=== PATIENT | male | born 1970 ===

== ENCOUNTER 2021-02-26 09:28 | Emergency (ER) | payer SELFPAY ==
[2021-02-26] MEDS ORDERED: LACTULOSE 20 GM/30 ML ORAL LIQD PO ONE (10:21)
[2021-02-26] MEDS ORDERED: MAGNESIUM CITRATE 300 ML ORAL LIQD PO ONE (10:21)
--- NOTE | 2021-02-26 10:27 | Emergency Department Report ---
ED General Adult HPI - General Chief complaint: Abdominal Pain Stated complaint: pain in bottom,cant use bathroom Time Seen by Provider: 02/26/21 10:07 Source: patient Mode of arrival: Ambulatory Limitations: No Limitations - History of Present Illness Initial comments: Patient is a 50-year-old male presents emergency room complaints of constipation. He states he has been feeling constipated for approximately a week. He states that a week ago he was straining to have a bowel movement and now has discomfort in the rectum. He states he has been unable to have a bowel movement for 3 days. He is still able to pass gas. He denies any vomiting, hematochezia, melena. No past medical history. No allergies medications. He has not tried any medications for his symptoms - Related Data Previous Rx's Medication Instructions Recorded Last Taken Type Docusate Sodium [Colace] 100 mg PO BID PRN #60 capsule 02/26/21 Unknown Rx Hydrocortisone [Anucort-HC SUPPOS] 25 mg RC BID #12 supp.rect 02/26/21 Unknown Rx Polyethylene Glycol 3350 [Miralax] 17 gm PO DAILY #1 bottle 02/26/21 Unknown Rx Allergies Allergy/AdvReac Type Severity Reaction Status Date / Time No Known Allergies Allergy Unverified 02/26/21 09:34 ED Review of Systems ROS: Stated complaint: pain in bottom,cant use bathroom Other details as noted in HPI Comment: All other systems reviewed and negative ED Past Medical Hx - Past Medical History Previous Medical History?: No - Surgical History Past Surgical History?: No - Medications Home Medications: Home Medications Medication Instructions Recorded Confirmed Last Taken Type Docusate Sodium [Colace] 100 mg PO BID PRN #60 capsule 02/26/21 Unknown Rx Hydrocortisone [Anucort-HC SUPPOS] 25 mg RC BID #12 supp.rect 02/26/21 Unknown Rx Polyethylene Glycol 3350 [Miralax] 17 gm PO DAILY #1 bottle 02/26/21 Unknown Rx ED Physical Exam - General Limitations: No Limitations General appearance: alert, in no apparent distress - Head Head exam: Present: atraumatic, normocephalic - Eye Eye exam: Present: normal appearance - ENT ENT exam: Present: mucous membranes moist - Respiratory Respiratory exam: Present: normal lung sounds bilaterally. Absent: respiratory distress, wheezes, rales, rhonchi, stridor, chest wall tenderness, accessory muscle use, decreased breath sounds, prolonged expiratory - Cardiovascular Cardiovascular Exam: Present: regular rate, normal rhythm, normal heart sounds. Absent: systolic murmur, diastolic murmur, rubs, gallop - GI/Abdominal GI/Abdominal exam: Present: soft, normal bowel sounds. 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, there is one small internal hemorrhoid, no external hemorrhoid, no induration, no fluctuance, no increased warmth, no drainage, no ttp, small brown stool, no gross blood, no impaction) - Neurological Exam Neurological exam: Present: alert, oriented X3 - Psychiatric Psychiatric exam: Present: normal affect, normal mood - Skin Skin exam: Present: warm, dry, intact ED Course Vital Signs 02/26/21 02/26/21 09:36 12:12 Temperature 98.2 F 97.5 F L Pulse Rate 84 101 H Respiratory 17 18 Rate Blood Pressure 118/82 Blood Pressure 122/75 [Left] O2 Sat by Pulse 98 Oximetry ED Medical Decision Making - Radiology Data Radiology results: report reviewed Ordering Physician: MADONNA ENCINAS Date of Service: 02/26/21 Procedure(s): XR abdomen 2V Accession Number(s): [id number] cc: MADONNA ENCINAS Fluoro Time In Minutes: ABDOMEN 2 VIEWS INDICATION / CLINICAL INFORMATION: constipation. COMPARISON: None available. FINDINGS: TUBES / LINES: None. BOWEL GAS PATTERN: No significant abnormality. There is a small amount of stool noted throughout the colon. FREE AIR / EXTRALUMINAL GAS: None seen. ADDITIONAL FINDINGS: No significant additional findings. CHEST: Visualized chest shows no significant abnormality. IMPRESSION: 1. No significant abnormality. Signer Name: Danny Jarvis MD Signed: 02/26/2021 10:58 AM Workstation Name: [id number] Transcribed By: SS Dictated By: Danny Jarvis MD Electronically Authenticated By: Danny Jarvis MD Signed Date/Time: 02/26/211057 DD/ 57 TD/TT: - Medical Decision Making Patient is a 50-year-old male presents emergency room complaints of constipation. He states he has been feeling constipated for approximately a week. He states that a week ago he was straining to have a bowel movement and now has discomfort in the rectum. He states he has been unable to have a bowel movement for 3 days. He is still able to pass gas. He denies any vomiting, hematochezia, melena. No past medical history. No allergies medications. He has not tried any medications for his symptoms. Vitals are normal. 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 X-ray abdomen No significant abnormality. There is a small amount of stool noted throughout the colon. Patient has no obstructive symptoms. Patient given prescription for medications. Discussed strict return precautions in detail with patient. Discussed the importance of outpatient follow-up. Advised patient Please take medication as prescribed. Increase your water intake. Increase your fiber intake. Follow-up with your primary care doctor. Follow-up with a GI doctor. Return to emergency room immediately for any new or worsening symptoms. Critical care attestation.: If time is entered above; I have spent that time in minutes in the direct care of this critically ill patient, excluding procedure time. ED Disposition Clinical Impression: Rectal pain, Internal hemorrhoid Constipation Qualifiers: Constipation type: unspecified constipation type Qualified Code(s): K59.00 - Constipation, unspecified Disposition: HOME / SELF CARE / HOMELESS Is pt being admited?: No Does the pt Need Aspirin: No Condition: Stable Instructions: Hemorrhoids, [id number], Constipation, Adult Additional Instructions: Please take medication as prescribed. Increase your water intake. Increase your fiber intake. Follow-up with your primary care doctor. Follow-up with a GI doctor. Return to emergency room immediately for any new or worsening symptoms. Prescriptions: Hydrocortisone [Anucort-HC SUPPOS] 25 mg RC BID #12 supp.rect Docusate Sodium [Colace] 100 mg PO BID PRN #60 capsule PRN Reason: constipation Polyethylene Glycol 3350 [Miralax] 17 gm PO DAILY #1 bottle Referrals: PRIMARY CARE, [Primary Care Provider] - 2-3 Days [facility] [Provider Group] - 2-3 Days Time of Disposition: :48 Print Language: GREEK
--- NOTE | 2021-02-26 11:03 | XRay Report ---
ABDOMEN 2 VIEWS INDICATION / CLINICAL INFORMATION: constipation. COMPARISON: None available. FINDINGS: TUBES / LINES: None. BOWEL GAS PATTERN: No significant abnormality. There is a small amount of stool noted throughout the colon. FREE AIR / EXTRALUMINAL GAS: None seen. ADDITIONAL FINDINGS: No significant additional findings. CHEST: Visualized chest shows no significant abnormality. IMPRESSION: 1. No significant abnormality. Signer Name: Danny Jarvis MD Signed: 02/26/2021 10:58 AM Workstation Name: [id number]
[2021-02-26 12:14] VITALS: BP 122/75
== END 2021-02-26 12:15 | disposition home or self-care (01) ==
LOC: ED 09:28
DX: K64.8 Other hemorrhoids (principal); K59.00 Constipation, unspecified; Z79.899 Other long term (current) drug therapy
CPT/HCPCS: 74019; 99283

== ENCOUNTER 2021-03-08 08:56 | Inpatient (IN) | payer SELFPAY ==
[2021-03-08] MEDS ORDERED: SODIUM CHLORIDE 0.9% 1000 ML IV SOLN IV ONE (10:34)
[2021-03-08] MEDS ORDERED: PIPERACIL/TAZOBACTA 4.5/NS 100 4.5 GM/100 ML VIAL IV ONE (10:35)
--- NOTE | 2021-03-08 10:39 | Emergency Department Report ---
ED General Adult HPI - General Chief complaint: Rectal Pain Stated complaint: HEMORRIOD Time Seen by Provider: 03/08/21 10:15 Source: patient Mode of arrival: Ambulatory Limitations: No Limitations - History of Present Illness Initial comments: Patient is a 50-year-old male presents emergency room with complaints of bleeding and drainage from the gluteal region that began 4 to 5 days ago. Patient was evaluated emergency department on 02/26/2021 and diagnosed with a small external hemorrhoid at that time. Patient was not having any rectal bleeding or hematochezia at that time. He states over the last few days he began having edema present to the gluteal region and then started having this drainage. He did not follow-up with a primary care doctor or a GI doctor. he denies any fever, abd pain, melena. no PMHx. no allergies to meds. - Related Data Previous Rx's Medication Instructions Recorded Last Taken Type Docusate Sodium [Colace] 100 mg PO BID PRN #60 capsule 02/26/21 Unknown Rx Hydrocortisone [Anucort-HC SUPPOS] 25 mg RC BID #12 supp.rect 02/26/21 Unknown Rx Polyethylene Glycol 3350 [Miralax] 17 gm PO DAILY #1 bottle 02/26/21 Unknown Rx Allergies Allergy/AdvReac Type Severity Reaction Status Date / Time No Known Allergies Allergy Verified 03/08/21 10:29 ED Review of Systems ROS: Stated complaint: HEMORRIOD Other details as noted in HPI Comment: All other systems reviewed and negative ED Past Medical Hx - Past Medical History Previous Medical History?: No - Surgical History Past Surgical History?: No - Medications Home Medications: Home Medications Medication Instructions Recorded Confirmed Last Taken Type Docusate Sodium [Colace] 100 mg PO BID PRN #60 capsule 02/26/21 Unknown Rx Hydrocortisone [Anucort-HC SUPPOS] 25 mg RC BID #12 supp.rect 02/26/21 Unknown Rx Polyethylene Glycol 3350 [Miralax] 17 gm PO DAILY #1 bottle 02/26/21 Unknown Rx ED Physical Exam - General Limitations: No Limitations General appearance: alert, in no apparent distress - Head Head exam: Present: atraumatic, normocephalic - Eye Eye exam: Present: normal appearance - ENT ENT exam: Present: mucous membranes moist - exam: Present: other (there is induration present to the bilateral gluteus, there is copious amounts of mostly bloody drainage, 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 ) - Neurological Exam Neurological exam: Present: alert, oriented X3 - Psychiatric Psychiatric exam: Present: normal affect, normal mood - Skin Skin exam: Present: warm, dry ED Course Vital Signs 03/08/21 03/08/21 03/08/21 10:26 11:28 11:30 Temperature 98.4 F Pulse Rate 104 H 93 H 89 Respiratory 16 27 H 23 Rate Blood Pressure 111/64 Blood Pressure 75/58 111/64 [Left] O2 Sat by Pulse 98 100 93 Oximetry 03/08/21 03/08/21 03/08/21 11:46 12:00 12:16 Temperature Pulse Rate 87 87 88 Respiratory 13 11 L 12 Rate Blood Pressure 95/69 105/56 103/67 Blood Pressure [Left] O2 Sat by Pulse 98 97 99 Oximetry 03/08/21 03/08/21 13:09 13:16 Temperature Pulse Rate 87 85 Respiratory 30 H 28 H Rate Blood Pressure Blood Pressure [Left] O2 Sat by Pulse 94 98 Oximetry - Reevaluation(s) Reevaluation #1: 03/08/21 10:30 advised charge nurse and nursing staff pt needs room NEO due to severe sepsis 03/08/21 10:50 Dr. sawyer ER attending evaluated pt and advised to call surgery, advised janelle daley to page surgery, he advised to change zosyn to cefepime, canceled zosyn and ordered cefepime 03/08/21 11:09 medical assistant secretary spoke to food and nutrition supervisor line for Dr. Navarro, who advised that she is currently in surgery 03/08/21 11:32 nurse advised lactic acid is 2.8, pt is currently getting sepsis fluid protoco ls, BP is improving 03/08/21 11:[address] Navarro, general surgeon regarding pt history, results, and severe sepsis, advised to keep patient n.p.o., order CT abdomen pelvis with IV contrast and she will see patient in the emergency room, advised hospitalist admission 03/08/21 11:53 called hospitalist, he will call back 03/08/21 12:[address], hospitalist who will accept and resume care of patient, will admit to hospitalist service ED Medical Decision Making - Lab Data Result diagrams: 03/08/21 10:53 03/08/21 10:53 Lab Results 03/08/21 03/08/21 03/08/21 Range/Units 10:53 10:53 10:53 WBC 10.6 (4.5-11.0) K/mm3 RBC 5.58 H (3.65-5.03) M/mm3 Hgb 17.8 H (11.8-15.2) gm/dl Hct 53.0 H (35.5-45.6) % MCV 95 H (84-94) fl MCH 32 (28-32) pg MCHC 34 (32-34) % RDW 13.3 (13.2-15.2) % Plt Count 491 H (140-440) K/mm3 Lymph % (Auto) 20.9 (13.4-35.0) % Mcdowell % (Auto) 16.0 H (0.0-7.3) % Eos % (Auto) 0.3 (0.0-4.3) % Baso % (Auto) 0.5 (0.0-1.8) % Lymph # (Auto) 2.2 (1.2-5.4) K/mm3 Mcdowell # (Auto) 1.7 H (0.0-0.8) K/mm3 Eos # (Auto) 0.0 (0.0-0.4) K/mm3 Baso # (Auto) 0.1 (0.0-0.1) K/mm3 Seg Neutrophils % 62.3 (40.0-70.0) % Seg Neutrophils # 6.6 (1.8-7.7) K/mm3 PT (12.2-14.9) Sec. INR (0.87-1.13) APTT (24.2-36.6) Sec. Sodium 132 L (137-145) mmol/L Potassium 3.3 L (3.6-5.0) mmol/L Chloride 87.4 L (98-107) mmol/L Carbon Dioxide 30 (22-30) mmol/L Anion Gap 18 mmol/L BUN 17 (9-20) mg/dL Creatinine 0.9 (0.8-1.3) mg/dL Estimated GFR > 60 ml/min BUN/Creatinine Ratio 19 % Glucose 117 H (75-100) mg/dL Lactic Acid 2.80 H* (0.7-2.0) mmol/L Calcium 9.4 (8.4-10.2) mg/dL Total Bilirubin 0.80 (0.1-1.2) mg/dL AST 35 (5-40) units/L ALT 23 (7-56) units/L Alkaline Phosphatase 117 (35-129) units/L C-Reactive Protein (0.00-1.30) mg/dL Total Protein 9.1 H (6.3-8.2) g/dL Albumin 2.9 L (3.9-5) g/dL Albumin/Globulin Ratio 0.5 % Blood Type Antibody Screen 03/08/21 03/08/21 03/08/21 Range/Units 10:53 10:57 11:52 WBC (4.5-11.0) K/mm3 RBC (3.65-5.03) M/mm3 Hgb (11.8-15.2) gm/dl Hct (35.5-45.6) % MCV (84-94) fl MCH (28-32) pg MCHC (32-34) % RDW (13.2-15.2) % Plt Count (140-440) K/mm3 Lymph % (Auto) (13.4-35.0) % Mcdowell % (Auto) (0.0-7.3) % Eos % (Auto) (0.0-4.3) % Baso % (Auto) (0.0-1.8) % Lymph # (Auto) (1.2-5.4) K/mm3 Mcdowell # (Auto) (0.0-0.8) K/mm3 Eos # (Auto) (0.0-0.4) K/mm3 Baso # (Auto) (0.0-0.1) K/mm3 Seg Neutrophils % (40.0-70.0) % Seg Neutrophils # (1.8-7.7) K/mm3 PT 14.0 (12.2-14.9) Sec. INR 0.97 (0.87-1.13) APTT 31.6 (24.2-36.6) Sec. Sodium (137-145) mmol/L Potassium (3.6-5.0) mmol/L Chloride (98-107) mmol/L Carbon Dioxide (22-30) mmol/L Anion Gap mmol/L BUN (9-20) mg/dL Creatinine (0.8-1.3) mg/dL Estimated GFR ml/min BUN/Creatinine Ratio % Glucose (75-100) mg/dL Lactic Acid (0.7-2.0) mmol/L Calcium (8.4-10.2) mg/dL Total Bilirubin (0.1-1.2) mg/dL AST (5-40) units/L ALT (7-56) units/L Alkaline Phosphatase (35-129) units/L C-Reactive Protein 11.30 H (0.00-1.30) mg/dL Total Protein (6.3-8.2) g/dL Albumin (3.9-5) g/dL Albumin/Globulin Ratio % Blood Type O POSITIVE Antibody Screen Negative - Radiology Data Radiology results: report reviewed Ordering Physician: MADONNA ENCINAS Date of Service: 03/08/21 Procedure(s): CT abdomen pelvis w con Accession Number(s): [id number] cc: MADONNA ENCINAS CT ABDOMEN AND PELVIS WITH CONTRAST HISTORY: gluteal induration bilaterally, +drainage, +sepsis COMPARISON: 02/26/2021. TECHNIQUE: CT images of the abdomen and pelvis were obtained following administration of intravenous contrast. Oral contrast was not administered which limits evaluation of the gastrointestinal tract. All CT scans at this location are performed using CT dose reduction for ALARA by means of automated exposure control. CONTRAST: 100 ml of intravenous contrast administered. FINDINGS: Limited evaluation of the lung bases is unremarkable. Skin defect/ulceration in the gluteal cleft is present. Additionally, there are at least three perirectal gas fluid collections consistent with abscesses. These include a 2.6 x 2.2 cm collection located inferiorly. Additionally, there is a 3.6 x 1.9 cm collection within the right perirectal region and a poorly defined 3.3 x 2.8 cm collection anteriorly. It is difficult to determine, but there does not appear to be any definite intraperitoneal extension. No free intraperitoneal gas is identified. No distended loops of intestines to suggest obstruction. The left kidney appears mildly enlarged and edematous in appearance. This may reflect some degree of pyelonephritis. A few subcentimeter hypodensities are present, too small to accurately characterize but statistically these would represent cysts. The liver, right kidney, spleen, pancreas, adrenal glands, and gallbladder are unremarkable. The appendix is visualized and is normal in appearance. Urinary bladder is unremarkable. Osseous structures show no evidence of acute fracture or aggressive osseous destructive lesion. IMPRESSION: Skin defect and ulceration within the gluteal cleft with multiple areas of perirectal abscesses (at least three), as described above. There does not appear to be any definite intraperitoneal extension, although is difficult to definitively determine. Consider follow-up imaging with delay oral contrast to ensure resolution and exclude the presence of fis ally/intraperitoneal extension. Slightly enlarged and edematous appearance of the left kidney, possibly representing some degree of pyelonephritis. Recommend correlation with urinalysis. Signer Name: Yobany Judd MD Signed: 03/08/2021 2:06 PM Workstation Name: [id number] Transcribed By: RENETTA Dictated By: YOBANY JUDD MD Electronically Authenticated By: YOBANY JUDD MD Signed Date/Time: 03/08/21 1406 DD/ 1356 TD/TT: - Medical Decision Making Patient is a 50-year-old male presents emergency room with complaints of bleedi ng and drainage from the gluteal region that began 4 to 5 days ago. Patient was evaluated emergency department on 02/26/2021 and diagnosed with a small external hemorrhoid at that time. Patient was not having any rectal bleeding or hematochezia at that time. He states over the last few days he began having edema present to the gluteal region and then started having this drainage. He did not follow-up with a primary care doctor or a GI doctor. he denies any fever, abd pain, melena. no PMHx. no allergies to meds. Vitals with tachycardia and hypotension, code sepsis initiated, patient given IV fluids and IV antibiotics. CT abdomen pelvis IV contrast Skin defect and ulceration within the gluteal cleft with multiple areas of perirectal abscesses (at least three), as described above. There does not appear to be any definite intraperitoneal extension, although is difficult to definitively determine. Consider follow-up imaging with delay oral contrast to ensure resolution and exclude the presence of fistula/intraperitoneal extension. Slightly enlarged and edematous appearance of the left kidney, possibly representing some degree of pyelonephritis. Recommend correlation with urinalysis. Dr. Navarro, general surgeon consulted and will see patient in ER, advised n.p.o. and hospitalist admission. Dr. Way, hospitalist accepts and resume care of patient, will admit to hospital service. Critical Care Time: Yes Critical care time in (mins) excluding proc time.: 35 Critical care attestation.: If time is entered above; I have spent that time in minutes in the direct care of this critically ill patient, excluding procedure time. Critical Care Time: Critical care time includes multiple reexaminations, consultations, interpretation of laboratory and diagnostic studies ED Disposition Clinical Impression: Cellulitis, gluteal, Cici-rectal abscess Sepsis Qualifiers: Sepsis type: sepsis due to unspecified organism Sepsis acute organ dysfunction status: without acute organ dysfunction Qualified Code(s): A41.9 - Sepsis, unspecified organism Disposition: 09 ADMITTED INPATIENT Is pt being admited?: Yes Does the pt Need Aspirin: No Condition: Serious Time of Disposition: 12:21
[2021-03-08] MEDS ORDERED: CEFEPIME/NS 2 GM/100 ML 2 GM/100 ML BAG IV ONE (10:51)
[2021-03-08] MEDS ORDERED: VANCOMYCIN PHARMACY TO DOSE IV SCH ×2 (11:00→18:00)
[2021-03-08 11:16] LABS: Basophils # (Auto) 0.1 K/mm3 (0.0-0.1); Basophils % (Auto) 0.5 % (0.0-1.8); Eosinophils % (Auto) 0.3 % (0.0-4.3); Hemoglobin 17.8 gm/dl (11.8-15.2); Lymphocytes # (Auto) 2.2 K/mm3 (1.2-5.4); Lymphocytes % (Auto) 20.9 % (13.4-35.0); Mean Corpuscular HGB Conc 34 % (32-34); Mean Corpuscular Volume 95 fl (84-94); Monocytes # (Auto) 1.7 K/mm3 (0.0-0.8); Platelet Count 491 K/mm3 (140-440); Red Blood Count 5.58 M/mm3 (3.65-5.03); Red Cell Distribution Width 13.3 % (13.2-15.2)
[2021-03-08 11:27] LABS: INR 0.97 (0.87-1.13)
[2021-03-08 11:28] LABS: Partial Thromboplastin Time 31.6 Sec. (24.2-36.6)
[2021-03-08] MEDS ORDERED: VANCOMYCIN 2,000 MG in SODIUM CHLORIDE 0.9% 500 ML 500 ML IV ONE (11:30)
[2021-03-08 12:01] LABS: Alanine Aminotransferase 23 units/L (7-56); Albumin 2.9 g/dL (3.9-5); BUN/Creatinine Ratio 19; Blood Urea Nitrogen 17 mg/dL (9-20); Calcium 9.4 mg/dL (8.4-10.2); Hemolysis Index 9
--- NOTE | 2021-03-08 13:06 | History and Physical Report ---
History of Present Illness Date of admission: 03/08/21 12:21 Chief complaint: My butt hurts History of present illness: 50 YO Male with Obesity presents to ED for evaluation. Patient reports "my butt hurts". Patient states that he has experienced pain in the gluteal region over the past 5 days with persistent and worsening symptoms over the same timeframe. Patient acknowledges foul-smelling drainage over the past 2 days. Patient transported to [facility] via private vehicle for further care and evaluation of the aforementioned symptoms. The patient was seen and evaluated in the emergency department. All lab and imaging studies reviewed. Patient underwent CT scan of the abdomen and pelvis and was found to have gluteal cellulitis complicated by multiple perirectal abscesses, systemic plantar response syndrome. Surgical team consulted in ED. Patient placed on IV antibiotic therapy. Patient denies fever, chills, chest pain, palpitation or productive cough, skin rash or recent ill contacts, or known exposure to COVID-19. No prior admission for review. No medication listed at time of admission reconciliation. Patient is pending surgical invention at this time. Past History Past Medical History: other (See HPI) Past Surgical History: No surgical history, Other (Reviewed) Social history: single. denies: smoking, alcohol abuse, prescription drug abuse Family history: hypertension Medications and Allergies Allergies Allergy/AdvReac Type Severity Reaction Status Date / Time No Known Allergies Allergy Verified 03/08/21 10:29 Home Medications Medication Instructions Recorded Confirmed Last Taken Type Docusate Sodium [Colace] 100 mg PO BID PRN #60 capsule 02/26/21 Unknown Rx Hydrocortisone [Anucort-HC SUPPOS] 25 mg RC BID #12 supp.rect 02/26/21 Unknown Rx Polyethylene Glycol 3350 [Miralax] 17 gm PO DAILY #1 bottle 02/26/21 Unknown Rx Active Meds: Active Medications Vancomycin HCl 2,000 mg/ (Sodium Chloride) 540 mls @ 250 mls/hr IV ONCE ONE Stop: 03/08/21 13:39 Review of Systems Constitutional: no weight loss, no weight gain, no chills, no sweats Ears, nose, mouth and throat: no ear pain, no nose pain, no nasal congestion Cardiovascular: no chest pain, no palpitations, no shortness of breath Respiratory: no cough, no cough with sputum, no hemoptysis, no shortness of breath Gastrointestinal: no abdominal pain, no nausea, no diarrhea, no constipation, no hematemesis Genitourinary Male: no hematuria, no flank pain, no discharge, no urinary frequency, no urinary hesitancy Rectal: other Musculoskeletal: no neck stiffness, no arm numbness/tingling, no low back pain, no shooting leg pain Integumentary: no deferred, no pruritis, no redness, no sores, no wounds Neurological: no head injury, no paralysis, no tingling, no tremors, no ataxia Psychiatric: no anxiety, no change in sleep habits, no sleep disturbances, no hypersomnia, no change in libido, no suicidal ideation Endocrine: no cold intolerance, no polyphagia, no polydipsia, no polyuria, no nocturia Hematologic/Lymphatic: no easy bruising, no easy bleeding Allergic/Immunologic: no urticaria Exam - Constitutional Vitals: Temp Pulse Resp BP Pulse Ox 98.4 F 89 23 111/64 93 03/08/21 10:26 03/08/21 11:30 03/08/21 11:30 03/08/21 11:30 03/08/21 11:30 General appearance: Present: mild distress, obese - EENT Eyes: Present: PERRL ENT: hearing intact, clear oral mucosa - Neck Neck: Present: supple, normal ROM - Respiratory Respiratory effort: normal Respiratory: bilateral: CTA - Cardiovascular Heart Sounds: Present: S1 & S2. Absent: rub, click - Extremities Extremities: pulses symmetrical, No edema Peripheral Pulses: within normal limits - Abdominal General gastrointestinal: Present: soft, non-tender, non-distended, normal bowel sounds Male genitourinary: Present: normal - Rectal Rectal Exam: normal rectal tone, other (Erythema to bilateral buttocks, left gluteal fluctuance, induration) - Integumentary Integumentary: Present: clear, warm, dry - Musculoskeletal Musculoskeletal: gait normal, strength equal bilaterally - Psychiatric Psychiatric: appropriate mood/affect, intact judgment & insight - Neurologic Neurologic: CNII-XII intact, moves all extremities Results - Labs CBC & Chem 7: 03/08/21 10:53 03/08/21 10:53 Labs: Abnormal lab results 03/08/21 03/08/21 03/08/21 Range/Units 10:53 10:53 10:53 RBC 5.58 H (3.65-5.03) M/mm3 Hgb 17.8 H (11.8-15.2) gm/dl Hct 53.0 H (35.5-45.6) % MCV 95 H (84-94) fl Plt Count 491 H (140-440) K/mm3 Schuyler % (Auto) 16.0 H (0.0-7.3) % Schuyler # (Auto) 1.7 H (0.0-0.8) K/mm3 Sodium 132 L (137-145) mmol/L Potassium 3.3 L (3.6-5.0) mmol/L Chloride 87.4 L (98-107) mmol/L Glucose 117 H (75-100) mg/dL Lactic Acid 2.80 H* (0.7-2.0) mmol/L C-Reactive Protein (0.00-1.30) mg/dL Total Protein 9.1 H (6.3-8.2) g/dL Albumin 2.9 L (3.9-5) g/dL 03/08/21 Range/Units 11:52 RBC (3.65-5.03) M/mm3 Hgb (11.8-15.2) gm/dl Hct (35.5-45.6) % MCV (84-94) fl Plt Count (140-440) K/mm3 Schuyler % (Auto) (0.0-7.3) % Schuyler # (Auto) (0.0-0.8) K/mm3 Sodium (137-145) mmol/L Potassium (3.6-5.0) mmol/L Chloride (98-107) mmol/L Glucose (75-100) mg/dL Lactic Acid (0.7-2.0) mmol/L C-Reactive Protein 11.30 H (0.00-1.30) mg/dL Total Protein (6.3-8.2) g/dL Albumin (3.9-5) g/dL Assessment and Plan - Patient Problems (1) Cici-rectal abscess Current Visit: Yes Status: Acute Plan to address problem: CT scan abdomen and pelvis, surgical team consulted in ED, IV fluid resuscitation therapy, pain control, patient pending surgical intervention at this time. (2) SIRS (systemic inflammatory response syndrome) Current Visit: Yes Status: Acute Plan to address problem: CBC, CMP, IV antibiotic therapy, supportive care. (3) Obesity (BMI 35.0-39.9 without comorbidity) Current Visit: Yes Status: Acute Plan to address problem: Balanced diet, increase physical activity at discharge, outpatient pulmonary follow-up for sleep study. (4) Cellulitis, gluteal Current Visit: Yes Status: Acute Plan to address problem: IV antibiotic therapy, pain control, supportive care. CT scan abdomen and pelvis (5) DVT prophylaxis Current Visit: Yes Status: Acute Plan to address problem: SCDs bilateral lower extremities while in bed, patient is ambulatory. (6) Advance care planning Current Visit: Yes Status: Acute Plan to address problem: Disease education conducted, care plan discussed, diagnosis discussed, prognosis discussed, patient counseled regarding balanced diet and increase physical activity discharge. Patient knowledges understanding agreement with care plan, +30 minutes
[2021-03-08] MEDS ORDERED: HYDROmorphone 1 MG/1 ML INJ IV PRN ×3 (13:07→17:15)
[2021-03-08] MEDS ORDERED: oxyCODONE /ACETAMINOPHEN 5-325MG TAB PO PRN ×2 (13:07→17:15)
[2021-03-08] MEDS ORDERED: ONDANSETRON 4 MG/2 ML INJ IV PRN ×2 (13:07→17:00)
[2021-03-08] MEDS ORDERED: ALBUTEROL 2.5 MG/3 ML NEBU IH PRN (13:07)
[2021-03-08] MEDS ORDERED: ACETAMINOPHEN 325 MG TAB PO PRN (13:07)
--- NOTE | 2021-03-08 13:12 | Event Note ---
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 Patient presented secondary to rectal pain, anal pain, and a bleeding wound. This was actually located in the gluteal cleft. There was no trauma associated with this. He had had subjective fevers. On exam, patient had induration in the gluteal area bilaterally with a purulent and draining wound. He was hypotensive and diaphoretic. Patient was tachycardic. He had no abdominal tenderness. Patient had presented with what appears to be a gluteal abscess. He has hypotension and tachycardia that would be consistent with septic shock. He has been aggressively treated. Surgery can be consulted and the patient will require admission.
--- NOTE | 2021-03-08 14:11 | Cat Scan Report ---
CT ABDOMEN AND PELVIS WITH CONTRAST HISTORY: gluteal induration bilaterally, +drainage, +sepsis COMPARISON: 02/26/2021. TECHNIQUE: CT images of the abdomen and pelvis were obtained following administration of intravenous contrast. Oral contrast was not administered which limits evaluation of the gastrointestinal tract. A ll CT scans at this location are performed using CT dose reduction for ALARA by means of automated ex posure control. CONTRAST: 100 ml of intravenous contrast administered. FINDINGS: Limited evaluation of the lung bases is unremarkable. Skin defect/ulceration in the gluteal cleft is present. Additionally, there are at least three perire ctal gas fluid collections consistent with abscesses. These include a 2.6 x 2.2 cm collection located inferiorly. Additionally, there is a 3.6 x 1.9 cm collection within the right perirectal region and a poorly defined 3.3 x 2.8 cm collection anteriorly. It is difficult to determine, but there does not appear to be any definite intraperitoneal extension. No free intraperitoneal gas is identified. No d istended loops of intestines to suggest obstruction. The left kidney appears mildly enlarged and edematous in appearance. This may reflect some degree of pyelonephritis. A few subcentimeter hypodensities are present, too small to accurately characterize b ut statistically these would represent cysts. The liver, right kidney, spleen, pancreas, adrenal glands, and gallbladder are unremarkable. The appendix is visualized and is normal in appearance. Urinary bladder is unremarkable. Osseous structures show no evidence of acute fracture or aggressive osseous destructive lesion. IMPRESSION: Skin defect and ulceration within the gluteal cleft with multiple areas of perirectal abscesses (at l east three), as described above. There does not appear to be any definite intraperitoneal extension, although is difficult to definitively determine. Consider follow-up imaging with delay oral contrast to ensure resolution and exclude the presence of fistula/intraperitoneal extension. Slightly enlarged and edematous appearance of the left kidney, possibly representing some degree of p yelonephritis. Recommend correlation with urinalysis. Signer Name: Yobany Montero MD Signed: 03/08/2021 2:06 PM Workstation Name: [id number]
[2021-03-08] MEDS ORDERED: LIDOCAINE (1%) 10 MG/1 ML VIAL 20 ML MDV ONE (15:54)
[2021-03-08] MEDS ORDERED: BUPIVACAINE/PF (0.25%) 2.5 MG/ML 30 ML VIAL INFILTRATI ONE ×2 (15:54→16:56)
[2021-03-08] MEDS ORDERED: LIDOCAINE MPF (2%) 20 MG/1 ML VIAL 5 ML ONE (15:55)
[2021-03-08] MEDS ORDERED: ONDANSETRON 4 MG/2 ML INJ ONE (15:55)
[2021-03-08] MEDS ORDERED: SUCCINYLCHOLINE CHLORIDE 200 MG/10 ML INJ MDV ONE (15:55)
[2021-03-08] MEDS ORDERED: propofoL 200 MG/20 ML VIAL IV ONE (15:56)
[2021-03-08] MEDS ORDERED: HYDROmorphone 1 MG/1 ML INJ ONE (15:56)
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
[2021-03-08] MEDS ORDERED: PHENYLEPHRINE/NS 1,000 MCG/10 ML SYRINGE (OR USE) IV ONE (16:15)
[2021-03-08] MEDS ORDERED: ROCURONIUM 50 MG/5 ML INJ IV ONE (16:26)
--- NOTE | 2021-03-08 16:44 | Anesthesia Consultation ---
Anesthesia Consult and Med Hx Date of service: 03/08/21 - Airway Anesthetic Teeth Evaluation: Good, Chipped (tooth #7), Caps (gold cap #9) ROM Head & Neck: Adequate Mental/Hyoid Distance: Adequate Mallampati Class: Class III Intubation Access Assessment: Possibly Difficult - Pre-Operative Health Status ASA Pre-Surgery Classification: ASA3, Emergency Proposed Anesthetic Plan: General - Pulmonary Hx Smoking: Yes Hx Respiratory Symptoms: No - Cardiovascular System Hx Hypertension: No Hx Heart Attack/AMI: No - Central Nervous System CVA: No - Endocrine Hx Renal Disease: No Hx Liver Disease: No Hx Insulin Dependent Diabetes: No Hx Non-Insulin Dependent Diabetes: No Hx Thyroid Disease: No - Other Systems Hx Obesity: Yes (BMI 35) - Additional Comments Anesthesia Medical History Comments: No hx anesthetic complications. Denies prior medical problems. Presented with sepsis 2/2 perirectal abcess. Hypotensive on admission now improved after IVF and antibiotic administration. Elevated lactic acid and hct noted on labs. Plan GETA.
--- NOTE | 2021-03-08 16:44 | Anesthesia Day of Surgery ---
Anesthesia Day of Surgery - Day of Surgery Patient Examined: Yes Patient H&P Reviewed: Yes Patient is NPO: Yes
[2021-03-08] MEDS ORDERED: SODIUM HYPOCHLORITE, DAKIN'S 1/2 STRENGTH (0.25%) 473 ML TOPICAL SOLN ONE (16:46)
[2021-03-08] MEDS ORDERED: LIDOCAINE (1%) 10 MG/1 ML VIAL 20 ML MDV INFILTRATI ONE (16:56)
[2021-03-08] MEDS ORDERED: SODIUM HYPOCHLORITE, DAKIN'S 1/2 STRENGTH (0.25%) 473 ML TOPICAL SOLN IR ONE (16:57)
[2021-03-08] MEDS ORDERED: SODIUM CHLORIDE 0.9% IRR 1,500 ML BOTTLE IR ONE (16:59)
--- NOTE | 2021-03-08 17:19 | Post Operative Note ---
Pre-op diagnosis: perirectal abscess Post-op diagnosis: other (perirectal abscess with necrotizing soft tissue infection) Findings: 1. Large perirectal abscess without obvious fistula 2. Necrotizing soft tissue infection with skin defect to the left of the gluteal cleft 3. Tunneling of soft tissue wound circumfrentially, along perirectal tissue, and in right inner gluteal fold to 10cm Procedure: incision and drainage of perirectal/gluteal abscess with excisional debridement, rectal exam under anesthesia Anesthesia: ELIZABETHA, local Surgeon: DEBBI CAIN Estimated blood loss: 50-100ml Pathology: list (cultures) Specimen disposition: to lab Condition: stable Disposition: PACU
[2021-03-08] MEDS ORDERED: ALBUMIN HUMAN 5% (12.5 GM/250 ML) INJ IV ONE ×2 (17:47→17:58)
[2021-03-08] MEDS ORDERED: ALBUMIN HUMAN 25% (25 GM/100 ML) INJ IV ONE (17:55)
[2021-03-08] MEDS ORDERED: dexAMETHasone 20 MG/5 ML VIAL ONE (18:00)
[2021-03-08] MEDS ORDERED: KETOROLAC 30 MG/1 ML INJ ONE (18:00)
--- NOTE | 2021-03-08 18:16 | Post Anesthesia Evaluation ---
- Post Anesthesia Evaluation Patient Participated: Yes Airway Patent: Yes Stable Respiratory Function: Yes Nausea/Vomiting: No Temp > 96.8F: Yes Pain Manageable: Yes Adequeate Hydration: Yes (fluid resuscitation ongoing) Anesthesia Complications: No
[2021-03-08] MEDS: PIPERACIL/TAZOBACTA 4.5/NS 100 4.5 GM/100 ML VIAL IV SCH (18:49)
[2021-03-08] MEDS: FAMOTIDINE 10 MG TAB PO SCH (22:54)
[2021-03-08] MEDS: HEPARIN 5,000 UNIT/1 ML VIAL SUB-Q SCH (22:54)
[2021-03-09] MEDS: PIPERACIL/TAZOBACTA 4.5/NS 100 4.5 GM/100 ML VIAL IV SCH ×3 (01:45→18:15)
[2021-03-09] MEDS: VANCOMYCIN 2,000 MG in SODIUM CHLORIDE 0.9% 500 ML 500 ML IV SCH ×2 (03:04→16:41)
[2021-03-09] MEDS: SODIUM CHLORIDE 0.9% 1000 ML 1,000 ML IV SCH ×2 (03:47→16:37)
[2021-03-09] MEDS: HEPARIN 5,000 UNIT/1 ML VIAL SUB-Q SCH ×3 (05:59→22:11)
[2021-03-09 06:00] LABS: Basophils % (Auto) 0.3 % (0.0-1.8); Hematocrit 39.7 % (35.5-45.6); Hemoglobin 12.8 gm/dl (11.8-15.2); Lymphocytes # (Auto) 1.4 K/mm3 (1.2-5.4); Lymphocytes % (Auto) 14.7 % (13.4-35.0); Mean Corpuscular HGB Conc 32 % (32-34); Mean Corpuscular Volume 95 fl (84-94); Monocytes # (Auto) 1.1 K/mm3 (0.0-0.8); Monocytes % (Auto) 11.4 % (0.0-7.3); Platelet Count 363 K/mm3 (140-440); Red Blood Count 4.17 M/mm3 (3.65-5.03); Red Cell Distribution Width 13.3 % (13.2-15.2)
[2021-03-09 06:24] LABS: Blood Urea Nitrogen 14 mg/dL (9-20); Calcium 7.7 mg/dL (8.4-10.2); Hemolysis Index 8
[2021-03-09 06:25] LABS: BUN/Creatinine Ratio 20
[2021-03-09] MEDS ORDERED: SODIUM CHLORIDE 0.9% 1000 ML 1,000 ML IV ONE (07:30)
[2021-03-09] MEDS: FAMOTIDINE 10 MG TAB PO SCH ×2 (10:26→22:12)
--- NOTE | 2021-03-09 12:15 | Post Anesthesia Evaluation ---
- Post Anesthesia Evaluation Patient Participated: Yes Airway Patent: Yes Stable Respiratory Function: Yes Nausea/Vomiting: No Temp > 96.8F: Yes Pain Manageable: Yes Adequeate Hydration: Yes Anesthesia Complications: No Block Receding Appropriately: Not Applicable Patient on Ventilator: No
--- NOTE | 2021-03-09 14:45 | Progress Note ---
Assessment and Plan Assessment and plan: #Rectal abscess #Gluteal cellulitis -s/p I&D 03/08, surgical culture collected, will follow results -Continue vancomycin and Zosyn for now -Surgery following, assistance appreciated #Obesity #Prediabetes -BMI 35.9 -A1C 6.3% -Discussed importance of lifestyle modification including weight loss, dietary changes and increased physical activity -Time:+ 10 minutes Disposition Plan: Home Total Time Spent with Patient (Minutes): 20 minutes History Interval history: No acute events overnight. Patient reports discomfort when he eats sits on the left buttock, otherwise pain controlled. Hospitalist Physical - Physical exam Narrative exam: GENERAL: Well-developed well-nourished. Lying in bed, no acute distress. CHEST/LUNGS: CTAB on room air HEART/CARDIOVASCULAR: RRR. No murmur, rubs or gallops appreciated. ABDOMEN: +BS. NT/ND. : Left buttock with surgical incision, packed without drainage NEURO: No focal motor deficit. Follows all commands. EXTREMITIES: No cyanosis, clubbing or edema. PSYCH: Cooperative. - Constitutional Vitals: Temp Pulse Resp BP Pulse Ox 98.1 F 67 18 84/50 99 03/09/21 06:22 03/09/21 06:22 03/09/21 06:22 03/09/21 06:22 03/09/21 10:00 General appearance: Present: mild distress, obese Results - Labs CBC & Chem 7: 03/09/21 05:30 03/09/21 05:30 Labs: Laboratory Last Values WBC 9.5 K/mm3 (4.5-11.0) 03/09/21 05:30 RBC 4.17 M/mm3 (3.65-5.03) 03/09/21 05:30 Hgb 12.8 gm/dl (11.8-15.2) D 03/09/21 05:30 Hct 39.7 % (35.5-45.6) D 03/09/21 05:30 MCV 95 fl (84-94) H 03/09/21 05:30 MCH 31 pg (28-32) 03/09/21 05:30 MCHC 32 % (32-34) 03/09/21 05:30 RDW 13.3 % (13.2-15.2) 03/09/21 05:30 Plt Count 363 K/mm3 (140-440) 03/09/21 05:30 Lymph % (Auto) 14.7 % (13.4-35.0) 03/09/21 05:30 Quay % (Auto) 11.4 % (0.0-7.3) H 03/09/21 05:30 Eos % (Auto) 0.0 % (0.0-4.3) 03/09/21 05:30 Baso % (Auto) 0.3 % (0.0-1.8) 03/09/21 05:30 Lymph # (Auto) 1.4 K/mm3 (1.2-5.4) 03/09/21 05:30 Quay # (Auto) 1.1 K/mm3 (0.0-0.8) H 03/09/21 05:30 Eos # (Auto) 0.0 K/mm3 (0.0-0.4) 03/09/21 05:30 Baso # (Auto) 0.0 K/mm3 (0.0-0.1) 03/09/21 05:30 Seg Neutrophils % 73.6 % (40.0-70.0) H 03/09/21 05:30 Seg Neutrophils # 7.0 K/mm3 (1.8-7.7) 03/09/21 05:30 PT 14.0 Sec. (12.2-14.9) 03/08/21 10:53 INR 0.97 (0.87-1.13) 03/08/21 10:53 APTT 31.6 Sec. (24.2-36.6) 03/08/21 10:53 Sodium 135 mmol/L (137-145) L 03/09/21 05:30 Potassium 3.7 mmol/L (3.6-5.0) 03/09/21 05:30 Chloride 99.6 mmol/L (98-107) 03/09/21 05:30 Carbon Dioxide 26 mmol/L (22-30) 03/09/21 05:30 Anion Gap 13 mmol/L 03/09/21 05:30 BUN 14 mg/dL (9-20) 03/09/21 05:30 Creatinine 0.7 mg/dL (0.8-1.3) L 03/09/21 05:30 Estimated GFR > 60 ml/min 03/09/21 05:30 BUN/Creatinine Ratio 20 % 03/09/21 05:30 Glucose 124 mg/dL (75-100) H 03/09/21 05:30 POC Glucose 117 mg/dL (70-105) H 03/08/21 17:34 Hemoglobin A1c 6.3 % (4-6) H 03/09/21 05:30 Lactic Acid 1.50 mmol/L (0.7-2.0) 03/08/21 19:42 Calcium 7.7 mg/dL (8.4-10.2) L D 03/09/21 05:30 Total Bilirubin 0.80 mg/dL (0.1-1.2) 03/08/21 10:53 AST 35 units/L (5-40) 03/08/21 10:53 ALT 23 units/L (7-56) 03/08/21 10:53 Alkaline Phosphatase 117 units/L (35-129) 03/08/21 10:53 C-Reactive Protein 11.30 mg/dL (0.00-1.30) H 03/08/21 11:52 Total Protein 9.1 g/dL (6.3-8.2) H 03/08/21 10:53 Albumin 2.9 g/dL (3.9-5) L 03/08/21 10:53 Albumin/Globulin Ratio 0.5 % 03/08/21 10:53 Blood Type O POSITIVE 03/08/21 10:57 Antibody Screen Negative 03/08/21 10:57 Microbiology: Microbiology 03/08/21 Unknown Rectum Surgical Culture - Preliminary 03/08/21 10:53 Peripheral/Venous Blood Culture - Preliminary NO GROWTH AFTER 24 HOURS 03/08/21 10:53 Peripheral/Venous Blood Culture - Preliminary NO GROWTH AFTER 24 HOURS Pineda/IV: Voiding Method Toilet Active Medications - Current Medications Current Medications: Generic Name Dose Route Start Last Admin Trade Name Freq PRN Reason Stop Dose Admin Acetaminophen 650 mg 03/08/21 13:07 Acetaminophen 325 Mg Tab PO Q4H PRN Pain MILD(1-3)/Fever >100.5/DUMONT Albuterol 2.5 mg 03/08/21 13:07 Albuterol 2.5 Mg/3 Ml Nebu IH Q4HRT PRN Shortness Of Breath Famotidine 10 mg 03/08/21 22:00 03/09/21 10:26 Famotidine 10 Mg Tab PO 10 mg BID SARA Administration Heparin Sodium (Porcine) 5,000 unit 03/08/21 22:00 03/09/21 05:59 Heparin 5,000 Unit/1 Ml Vial SUB-Q 5,000 unit Q8HR SARA Administration Hydromorphone HCl 0.5 mg 03/08/21 16:44 Hydromorphone 1 Mg/1 Ml Inj IV 03/09/21 16:43 Q10MIN PRN Pain , Severe (7-10) Hydromorphone HCl 0.5 mg 03/08/21 17:15 Hydromorphone 1 Mg/1 Ml Inj IV Q3H PRN Pain , Severe (7-10) Sodium Chloride 1,000 mls @ 125 mls/hr 03/08/21 13:15 03/09/21 03:47 Nacl 0.9% 1000 Ml IV 125 mls/hr DIRECT SARA Administration Piperacillin Sod/Tazobactam Sod 4.5 gm in 100 mls @ 200 mls/hr 03/08/21 18:00 03/09/21 01:45 Zosyn/Ns 4.5gm/100ml IV 200 mls/hr Q8H SARA Administration Protocol Vancomycin HCl 2,000 mg/ 540 mls @ 250 mls/hr 03/09/21 02:00 03/09/21 03:04 Sodium Chloride IV 250 mls/hr Q12H SARA Administration Ondansetron HCl 4 mg 03/08/21 13:07 Ondansetron 4 Mg/2 Ml Inj IV Q8H PRN Nausea And Vomiting Oxycodone/Acetaminophen 1 tab 03/08/21 17:15 Oxycodone /Acetaminophen 5-325mg Tab PO Q4H PRN Pain, Moderate (4-6) Sodium Chloride 10 ml 03/08/21 22:00 03/09/21 10:27 Sodium Chloride 0.9% 10 Ml Flush Syringe IV 10 ml BID SARA Administration Sodium Chloride 10 ml 03/08/21 13:07 Sodium Chloride 0.9% 10 Ml Flush Syringe IV PRN PRN LINE FLUSH
--- NOTE | 2021-03-09 17:05 | Progress Note ---
Assessment and Plan 50-year-old male status post incision and drainage of perirectal/gluteal abscess with excisional debridement, rectal exam under anesthesia, POD 1 Pt stable, improving clinically Plan: 1. Consistent carb diet, NPO p MN tonight 2. blood glucose control. HbA1C elevated 3. prn pain control 4. DVT ppx 5. IV abx 6. wound cultures pending 7. Will attempt packing change at bedside tomorrow. If unable to do so due to pain, will add patient to the OR schedule for dressing change and washout. Intraoperative findings discussed with the patient as well as the plan. Thank you for this consultation. Please call with any questions or concerns. Subjective Date of service: 03/09/21 Narrative: Patient seen and examined. States he feels much improved and the pain in the surgical area is minimal. There has been some drainage requiring changing of the outer dressing. He has been passing flatus but has not have a bowel movement yet. He is tolerating a diet. He has been afebrile Objective Vital Signs - 12hr 03/09/21 03/09/21 06:22 10:00 Temperature 98.1 F Pulse Rate 67 Respiratory 18 Rate Blood Pressure 84/50 O2 Sat by Pulse 98 99 Oximetry - General physical appearance Narrative Exam: Gen.: Awake, alert, oriented x3. No apparent distress ENT: Trachea midline. No lymphadenopathy. No scleral icterus or conjunctival pallor CV: S1, S2 present Respiratory: No audible wheezes Back: Cellulitis and induration of bilateral buttocks is greatly improved. P acking in place with some redundant packing outside of wound which was cut. New outer dressing applied. Serosanguineous drainage on dressing. - Labs 03/09/21 05:30 03/09/21 05:30 Diabetes panel 03/09/21 03/09/21 Range/Units 05:30 05:30 Sodium 135 L (137-145) mmol/L Potassium 3.7 (3.6-5.0) mmol/L Chloride 99.6 (98-107) mmol/L Carbon Dioxide 26 (22-30) mmol/L BUN 14 (9-20) mg/dL Creatinine 0.7 L (0.8-1.3) mg/dL Glucose 124 H (75-100) mg/dL Hemoglobin A1c 6.3 H (4-6) % Calcium 7.7 L D (8.4-10.2) mg/dL Calcium panel 03/09/21 Range/Units 05:30 Calcium 7.7 L D (8.4-10.2) mg/dL Pituitary panel 03/09/21 Range/Units 05:30 Sodium 135 L (137-145) mmol/L Potassium 3.7 (3.6-5.0) mmol/L Chloride 99.6 (98-107) mmol/L Carbon Dioxide 26 (22-30) mmol/L BUN 14 (9-20) mg/dL Creatinine 0.7 L (0.8-1.3) mg/dL Glucose 124 H (75-100) mg/dL Calcium 7.7 L D (8.4-10.2) mg/dL Adrenal panel 03/09/21 Range/Units 05:30 Sodium 135 L (137-145) mmol/L Potassium 3.7 (3.6-5.0) mmol/L Chloride 99.6 (98-107) mmol/L Carbon Dioxide 26 (22-30) mmol/L BUN 14 (9-20) mg/dL Creatinine 0.7 L (0.8-1.3) mg/dL Glucose 124 H (75-100) mg/dL Calcium 7.7 L D (8.4-10.2) mg/dL
--- NOTE | 2021-03-09 17:22 | Operative Report ---
Operative Report Operative Report: Date: 03/08/21 17:16 Initialization Date: 03/08/21 17:16 Pre-op diagnosis: perirectal abscess Post-op diagnosis: other (perirectal abscess with necrotizing soft tissue infection) Findings: 1. Large perirectal abscess without obvious fistula 2. Necrotizing soft tissue infection with skin defect to the left of the gluteal cleft 3. Tunneling of soft tissue wound circumfrentially, along perirectal tissue, and in right inner gluteal fold to 10cm Procedure: incision and drainage of perirectal/gluteal abscess with excisional debridement, rectal exam under anesthesia Anesthesia: KENDALL, local Surgeon: DEBBI CAIN Estimated blood loss: 50-100ml Pathology: list (cultures) Specimen disposition: to lab Condition: stable Disposition: PACU HPI and indication: Patient is a 50-year-old male who presented to the emergency room with complaints of worsening gluteal pain and constipation. He was found to have a large perirectal abscess draining through wound in the gluteal cleft just to the left of midline. It was recommended that the patient undergo rectal exam under anesthesia as well as further drainage and debridement of the abscess. All risk, benefits, alternatives to surgery were discussed and questions answered. Consent obtained Procedure in detail: Patient was identified in the preoperative area taken back to the operating room. Anesthesia was induced on the stretcher and once the endotracheal tube was secured the patient was placed on the operating room table in prone position. All bony prominences were padded appropriately. The patient was placed in jackknife position and the buttocks taped apart. The rectal and gluteal area were prepped and draped in usual sterile fashion a timeout performed. There was already a 3 cm opening in the skin in the gluteal cleft just to the left of the midline. There was copious amount of purulent drainage from this area. Wound cultures were obtained. The incision was extended in a cephalad and caudad direction in order to gain better exposure to the abscess cavity. The abscess cavity was probed bluntly with a gloved finger and appeared to extend along the perirectal tissues superiorly and the gluteal tissues as well as inferiorly into the right to the right buttock. There was some necrotic subcutaneous tissue sharply debrided. All purulent fluid was evacuated. The wound was then copiously irrigated and hemostasis very carefully ensured. The wound bed was very friable and there was oozing. This was controlled with electrocautery and pressure. Surgicel was packed into the wound and over the wound bed and hemostasis was very carefully ensured. It was then packed with 1 piece of Dakin's moistened Kerlix. This was covered with a 4 x 4 gauze and ABD pads and secured with tape. The wound measured approximately 5 cm x 3 cm x 6 cm. At the end of the case all sponge, instrument, sharp counts were correct x2. The patient was transferred to the stretcher in supine position., Extubated, taken to PACU in stable condition.
[2021-03-09 23:56] LABS: Bacteria,Urine 1+ /HPF (Negative); Bilirubin,Urine NEG (Negative); Blood,Urine SM (Negative); Color,Urine Yellow (Yellow); Mucus,Urine FEW /HPF; Protein,Urine <15 mg/dL mg/dL (Negative); RBC,Urine < 1.0 /HPF (0.0-6.0)
[2021-03-10] MEDS: PIPERACIL/TAZOBACTA 4.5/NS 100 4.5 GM/100 ML VIAL IV SCH ×3 (01:30→18:21)
[2021-03-10] MEDS: VANCOMYCIN 2,000 MG in SODIUM CHLORIDE 0.9% 500 ML 500 ML IV SCH ×2 (03:00→14:14)
[2021-03-10] MEDS: SODIUM CHLORIDE 0.9% 1000 ML 1,000 ML IV SCH (03:06)
[2021-03-10] MEDS: HEPARIN 5,000 UNIT/1 ML VIAL SUB-Q SCH ×3 (06:01→22:06)
[2021-03-10] MEDS ORDERED: LACTATED RINGERS 1,000 ML IV SCH (07:45)
[2021-03-10] MEDS ORDERED: HYDROmorphone 2 MG/1 ML INJ IV ONE (08:08)
[2021-03-10] MEDS ORDERED: LIDOCAINE (4%) 40 MG/ML TOPICAL SOLN 50 ML BOTTLE TP ONE (08:09)
[2021-03-10 08:52] LABS: Hemoglobin 12.3 gm/dl (11.8-15.2); Mean Corpuscular HGB Conc 33 % (32-34); Mean Corpuscular Volume 95 fl (84-94); Platelet Count 395 K/mm3 (140-440); Red Cell Distribution Width 13.5 % (13.2-15.2)
[2021-03-10 09:15] LABS: Blood Urea Nitrogen 10 mg/dL (9-20); Calcium 7.9 mg/dL (8.4-10.2); Hemolysis Index 21
[2021-03-10 09:17] LABS: BUN/Creatinine Ratio 17
[2021-03-10] MEDS: FAMOTIDINE 10 MG TAB PO SCH ×2 (09:48→22:07)
--- NOTE | 2021-03-10 10:19 | Progress Note ---
Assessment and Plan 50-year-old male status post incision and drainage of perirectal/gluteal abscess with excisional debridement, rectal exam under anesthesia, POD 2 Pt continues to improve clinically. He tolerated his first dressing change at the bedside. Plan: 1. Consistent carb diet 2. blood glucose control. HbA1C elevated 3. prn pain control 4. DVT ppx 5. IV abx 6. wound cultures pending 7. Daily packing changesorders placed for RN to perform 8. Case management consult, home health care 9. DC planning once outpatient antibiotics determined Thank you for this consultation. Please call with any questions or concerns. Subjective Date of service: 03/10/21 Narrative: Patient seen and examined. He has no acute complaints. He is afebrile. He is asking when he can go home. Objective Vital Signs - 12hr 03/09/21 03/10/21 03/10/21 23:48 00:00 06:00 Temperature 99.2 F 98.2 F Pulse Rate 66 67 Respiratory 20 20 Rate Blood Pressure 94/53 94/49 O2 Sat by Pulse 99 92 97 Oximetry - General physical appearance Narrative Exam: Gen.: Awake, alert, oriented x3. No apparent distress ENT: Trachea midline. No lymphadenopathy. No scleral icterus or conjunctival pallor CV: S1, S2 present Respiratory: No audible wheezes Gluteal: Dressing removed, saturated with serosanguineous fluid. After patient was premedicated, 1 piece of Kerlix packing was removed from the wound. The wound bed was examined and was clean with red granulation tissue. There was no drainage and no bleeding. The wound was packed with 1 piece of Kerlix moistened with Dakin's. This was covered with 4 x 4 fluff gauze, ABD pad, secured with mesh underwear. - Labs 03/10/21 08:21 03/10/21 08:21 Diabetes panel 03/10/21 Range/Units 08:21 Sodium 138 (137-145) mmol/L Potassium 3.8 (3.6-5.0) mmol/L Chloride 105.5 (98-107) mmol/L Carbon Dioxide 23 (22-30) mmol/L BUN 10 (9-20) mg/dL Creatinine 0.6 L (0.8-1.3) mg/dL Glucose 85 (75-100) mg/dL Calcium 7.9 L (8.4-10.2) mg/dL Calcium panel 03/10/21 Range/Units 08:21 Calcium 7.9 L (8.4-10.2) mg/dL Pituitary panel 03/10/21 Range/Units 08:21 Sodium 138 (137-145) mmol/L Potassium 3.8 (3.6-5.0) mmol/L Chloride 105.5 (98-107) mmol/L Carbon Dioxide 23 (22-30) mmol/L BUN 10 (9-20) mg/dL Creatinine 0.6 L (0.8-1.3) mg/dL Glucose 85 (75-100) mg/dL Calcium 7.9 L (8.4-10.2) mg/dL Adrenal panel 03/10/21 Range/Units 08:21 Sodium 138 (137-145) mmol/L Potassium 3.8 (3.6-5.0) mmol/L Chloride 105.5 (98-107) mmol/L Carbon Dioxide 23 (22-30) mmol/L BUN 10 (9-20) mg/dL Creatinine 0.6 L (0.8-1.3) mg/dL Glucose 85 (75-100) mg/dL Calcium 7.9 L (8.4-10.2) mg/dL
--- NOTE | 2021-03-10 11:30 | Progress Note ---
Assessment and Plan Assessment and plan: #Rectal abscess #Gluteal cellulitis -s/p I&D 03/08, surgical culture collected, now growth x 24hrs -continue vancomycin and Zosyn for now -will consult ID for antibiotic recommendations at discharge -Surgery following, assistance appreciated #Obesity #Prediabetes -BMI 35.9 -A1C 6.3% -glucose is stable without medical management -Discussed importance of lifestyle modification including weight loss, dietary changes and increased physical activity -Time:+ 10 minutes Disposition Plan: Home Total Time Spent with Patient (Minutes): 20 minutes History Interval history: No acute events overnight. Patient reports decreased pain in his buttock. Tolerated repacking of wound without issue. No other complaints at this time. Hospitalist Physical - Physical exam Narrative exam: GENERAL: Well-developed well-nourished. Lying in bed, no acute distress. CHEST/LUNGS: CTAB on room air HEART/CARDIOVASCULAR: RRR. No murmur, rubs or gallops appreciated. ABDOMEN: +BS. NT/ND. : Left buttock with surgical incision, packed without drainage NEURO: No focal motor deficit. Follows all commands. EXTREMITIES: No cyanosis, clubbing or edema. PSYCH: Cooperative. - Constitutional Vitals: Temp Pulse Resp BP Pulse Ox 98.2 F 67 20 94/49 97 03/10/21 06:00 03/10/21 06:00 03/10/21 06:00 03/10/21 06:00 03/10/21 06:00 General appearance: Present: mild distress, obese Results - Labs CBC & Chem 7: 03/10/21 08:21 03/10/21 08:21 Labs: Laboratory Last Values WBC 5.7 K/mm3 (4.5-11.0) 03/10/21 08:21 RBC 3.90 M/mm3 (3.65-5.03) 03/10/21 08:21 Hgb 12.3 gm/dl (11.8-15.2) 03/10/21 08:21 Hct 37.0 % (35.5-45.6) 03/10/21 08:21 MCV 95 fl (84-94) H 03/10/21 08:21 MCH 31 pg (28-32) 03/10/21 08: MCHC 33 % (32-34) 03/10/21 08:21 RDW 13.5 % (13.2-15.2) 03/10/21 08:21 Plt Count 395 K/mm3 (140-440) 03/10/21 08:21 Lymph % (Auto) 14.7 % (13.4-35.0) 03/09/21 05:30 [place] % (Auto) 11.4 % (0.0-7.3) H 03/09/21 05:30 Eos % (Auto) 0.0 % (0.0-4.3) 03/09/21 05:30 Baso % (Auto) 0.3 % (0.0-1.8) 03/09/21 05:30 Lymph # (Auto) 1.4 K/mm3 (1.2-5.4) 03/09/21 05:30 Fleming # (Auto) 1.1 K/mm3 (0.0-0.8) H 03/09/21 05:30 Eos # (Auto) 0.0 K/mm3 (0.0-0.4) 03/09/21 05:30 Baso # (Auto) 0.0 K/mm3 (0.0-0.1) 03/09/21 05:30 Seg Neutrophils % 73.6 % (40.0-70.0) H 03/09/21 05:30 Seg Neutrophils # 7.0 K/mm3 (1.8-7.7) 03/09/21 05:30 PT 14.0 Sec. (12.2-14.9) 03/08/21 10:53 INR 0.97 (0.87-1.13) 03/08/21 10:53 APTT 31.6 Sec. (24.2-36.6) 03/08/21 10:53 Sodium 138 mmol/L (137-145) 03/10/21 08:21 Potassium 3.8 mmol/L (3.6-5.0) 03/10/21 08:21 Chloride 105.5 mmol/L (98-107) 03/10/21 08:21 Carbon Dioxide 23 mmol/L (22-30) 03/10/21 08:21 Anion Gap 13 mmol/L 03/10/21 08:21 BUN 10 mg/dL (9-20) 03/10/21 08:21 Creatinine 0.6 mg/dL (0.8-1.3) L 03/10/21 08:21 Estimated GFR > 60 ml/min 03/10/21 08:21 BUN/Creatinine Ratio 17 % 03/10/21 08:21 Glucose 85 mg/dL (75-100) 03/10/21 08:21 POC Glucose 117 mg/dL (70-105) H 03/08/21 17:34 Hemoglobin A1c 6.3 % (4-6) H 03/09/21 05:30 Lactic Acid 1.50 mmol/L (0.7-2.0) 03/08/21 19:42 Calcium 7.9 mg/dL (8.4-10.2) L 03/10/21 08:21 Total Bilirubin 0.80 mg/dL (0.1-1.2) 03/08/21 10:53 AST 35 units/L (5-40) 03/08/21 10:53 ALT 23 units/L (7-56) 03/08/21 10:53 Alkaline Phosphatase 117 units/L (35-129) 03/08/21 10:53 C-Reactive Protein 11.30 mg/dL (0.00-1.30) H 03/08/21 11:52 Total Protein 9.1 g/dL (6.3-8.2) H 03/08/21 10:53 Albumin 2.9 g/dL (3.9-5) L 03/08/21 10:53 Albumin/Globulin Ratio 0.5 % 03/08/21 10:53 Urine Color Yellow (Yellow) 03/09/21 23:20 Urine Turbidity Clear (Clear) 03/09/21 23:20 Urine pH 6.0 (5.0-7.0) 03/09/21 23:20 Ur Specific [place] 1.014 (1.003-1.030) 03/09/21 23:20 Urine Protein <15 mg/dl mg/dL (Negative) 03/09/21 23:20 Urine Glucose (UA) Neg mg/dL (Negative) 03/09/21 23:20 Urine Ketones Neg mg/dL (Negative) 03/09/21 23:20 Urine Blood Sm (Negative) 03/09/21 23:20 Urine Nitrite Neg (Negative) 03/09/21 23:20 Urine Bilirubin Neg (Negative) 03/09/21 23:20 Urine Urobilinogen 4.0 mg/dL (<2.0) 03/09/21 23:20 Ur Leukocyte Esterase Tr (Negative) 03/09/21 23:20 Urine WBC (Auto) 17.0 /HPF (0.0-6.0) H 03/09/21 23:20 Urine RBC (Auto) < 1.0 /HPF (0.0-6.0) 03/09/21 23:20 U Epithel Cells (Auto) 2.0 /HPF (0-13.0) 03/09/21 23:20 Urine Bacteria (Auto) 1+ /HPF (Negative) 03/09/21 23:20 Urine Mucus Few /HPF 03/09/21 23:20 Urine Yeast (Budding) 1+ /HPF 03/09/21 23:20 Blood Type O POSITIVE 03/08/21 10:57 Antibody Screen Negative 03/08/21 10:57 Microbiology: Microbiology 03/08/21 Unknown Rectum Surgical Culture - Preliminary 03/08/21 10:53 Peripheral/Venous Blood Culture - Preliminary NO GROWTH AFTER 24 HOURS 03/08/21 10:53 Peripheral/Venous Blood Culture - Preliminary NO GROWTH AFTER 24 HOURS Pineda/IV: Voiding Method Urinal Active Medications - Current Medications Current Medications: Generic Name Dose Route Start Last Admin Trade Name Freq PRN Reason Stop Dose Admin Acetaminophen 650 mg 03/08/21 13:07 Acetaminophen 325 Mg Tab PO Q4H PRN Pain MILD(1-3)/Fever >100.5/DUMONT Albuterol 2.5 mg 03/08/21 13:07 Albuterol 2.5 Mg/3 Ml Nebu IH Q4HRT PRN Shortness Of Breath Famotidine 10 mg 03/08/21 22:00 03/10/21 09:48 Famotidine 10 Mg Tab PO 10 mg BID SARA Administration Heparin Sodium (Porcine) 5,000 unit 03/08/21 22:00 03/10/21 06:01 Heparin 5,000 Unit/1 Ml Vial SUB-Q 5,000 unit Q8HR SARA Administration Hydromorphone HCl 0.5 mg 03/08/21 17:15 Hydromorphone 1 Mg/1 Ml Inj IV Q3H PRN Pain , Severe (7-10) Sodium Chloride 1,000 mls @ 125 mls/hr 03/08/21 13:15 03/10/21 03:06 Nacl 0.9% 1000 Ml IV 125 mls/hr DIRECT SARA Administration Piperacillin Sod/Tazobactam Sod 4.5 gm in 100 mls @ 200 mls/hr 03/08/21 18:00 03/10/21 09:49 Zosyn/Ns 4.5gm/100ml IV 200 mls/hr Q8H SARA Administration Protocol Vancomycin HCl 2,000 mg/ 540 mls @ 250 mls/hr 03/09/21 02:00 03/10/21 03:00 Sodium Chloride IV 250 mls/hr Q12H SARA Administration Lactated Ringer's 1,000 mls @ 100 mls/hr 03/10/21 07:45 Lactated Ringers IV 03/10/21 17:44 DIRECT SARA Ondansetron HCl 4 mg 03/08/21 13:07 Ondansetron 4 Mg/2 Ml Inj IV Q8H PRN Nausea And Vomiting Oxycodone/Acetaminophen 1 tab 03/08/21 17:15 Oxycodone /Acetaminophen 5-325mg Tab PO Q4H PRN Pain, Moderate (4-6) Sodium Chloride 10 ml 03/08/21 22:00 03/10/21 09:53 Sodium Chloride 0.9% 10 Ml Flush Syringe IV 10 ml BID SARA Administration Sodium Chloride 10 ml 03/08/21 13:07 Sodium Chloride 0.9% 10 Ml Flush Syringe IV PRN PRN LINE FLUSH
--- NOTE | 2021-03-10 15:27 | Progress Note ---
Assessment and Plan -Cultures negative from surgery. -If discharging today would send home with Augmentin 875/125 mg every 12 hours and Bactrim DS every 12 hours to complete 7 days. -Wound care is the mainstay of treatment at this point given surgical debride ment and evacuation of necrotic tissue. -Tight glycemic control We will see patient in the a.m. if still admitted, otherwise okay to discharge as above. Rancho Harvey MD [facility] O: [phone] F: [phone] Subjective Date of service: 03/10/21 Interval history: 50-year-old man past medical history obesity presented to hospital complaining of buttock pain. This began 5 days prior to admission and was worsening since onset. He also noted foul-smelling drainage from the area at that time. He was taken to the OR on 03/08/2021 for debridement of a large perirectal abscess and necrotizing soft tissue infection UNable to see patient in consult today Objective - Constitutional Vitals: Vital Signs Temp Pulse Resp BP Pulse Ox 98.3 F 54 L 22 105/65 97 03/10/21 12:18 03/10/21 12:18 03/10/21 12:18 03/10/21 12:18 03/10/21 12:18 Temperature -Last 24 Hours Temperature 98.3 F Temperature 98.2 F Temperature 99.2 F Temperature 98.8 F - Labs CBC & Chem 7: 03/10/21 08:21 03/10/21 08:21 Labs: Abnormal lab results 03/09/21 03/10/21 03/10/21 Range/Units 23:20 08:21 08:21 MCV 95 H (84-94) fl Creatinine 0.6 L (0.8-1.3) mg/dL Calcium 7.9 L (8.4-10.2) mg/dL Urine WBC (Auto) 17.0 H (0.0-6.0) /HPF
[2021-03-11] MEDS: PIPERACIL/TAZOBACTA 4.5/NS 100 4.5 GM/100 ML VIAL IV SCH (01:38)
[2021-03-11] MEDS: VANCOMYCIN 2,000 MG in SODIUM CHLORIDE 0.9% 500 ML 500 ML IV SCH (01:38)
[2021-03-11 04:15] LABS: Hematocrit 36.7 % (35.5-45.6); Mean Corpuscular HGB Conc 33 % (32-34); Mean Corpuscular Volume 96 fl (84-94); Platelet Count 441 K/mm3 (140-440); Red Blood Count 3.82 M/mm3 (3.65-5.03); Red Cell Distribution Width 13.4 % (13.2-15.2)
[2021-03-11 04:29] LABS: Blood Urea Nitrogen 11 mg/dL (9-20); Calcium 7.8 mg/dL (8.4-10.2); Hemolysis Index 10
[2021-03-11 04:30] LABS: BUN/Creatinine Ratio 18
[2021-03-11] MEDS: SODIUM CHLORIDE 0.9% 1000 ML 1,000 ML IV SCH (06:06)
[2021-03-11] MEDS: HEPARIN 5,000 UNIT/1 ML VIAL SUB-Q SCH (06:30)
[2021-03-11] MEDS: FAMOTIDINE 10 MG TAB PO SCH (09:20)
[2021-03-11] MEDS ORDERED: SULFAMETHOXAZOLE/TRIMETHOPRIM 800/160MG DS TAB PO SCH (10:00)
[2021-03-11] MEDS ORDERED: AMOXICILLIN/K CLAV 875/125MG TAB PO SCH (10:00)
--- NOTE | 2021-03-11 10:03 | Discharge Summary ---
<YISEL CRAIG - Last Filed: 03/11/21 10:03> Providers - Providers Date of Admission: 03/08/21 12:21 Date of discharge: 03/11/21 Attending physician: YISEL CRAIG MD 03/08/21 11:47 Consult to Physician [CONS] Stat Comment: Consulting Provider: DEBBI CAIN Physician Instructions: Reason For Exam: gluteal vs perirectal abscess 03/10/21 09:13 Consult to Case Management [CONS] Routine Services Needed at Discharge: Home Health Services Notified:: n/a Additional Physician Instructions: please provide pt with information to apply for insurance 03/10/21 14:21 Consult to Physician [CONS] Routine Comment: Consulting Provider: LETY DOWELL Physician Instructions: Reason For Exam: outpatient abx recommendations Primary care physician: COIL WINDER REPAIR Hospitalization Condition: Serious Disposition: 30 STILL A PATIENT Exam - Physical Exam Narrative exam: GENERAL: Well-developed well-nourished. Lying in bed, no acute distress. CHEST/LUNGS: CTAB on room air HEART/CARDIOVASCULAR: RRR. No murmur, rubs or gallops appreciated. ABDOMEN: +BS. NT/ND. : Left buttock with surgical incision, packed without drainage NEURO: No focal motor deficit. Follows all commands. EXTREMITIES: No cyanosis, clubbing or edema. PSYCH: Cooperative. - Constitutional Vitals: Temp Pulse Resp BP Pulse Ox 97.7 F 58 L 17 115/68 99 03/11/21 05:08 03/11/21 05:08 03/11/21 06:06 03/11/21 05:08 03/11/21 05:08 Plan Care Plan Goals: Establish primary care as we discussed. You are pre-diabetic. With lifestyle changes and weight loss you can prevent progression to diabetes as we discussed. Follow up with Dr. Cain in clinic in 1 week. Change and pack your wound daily until you follow up in Surgery clinic. Follow up with: PRIMARY CARE, [Primary Care Provider] - 3-5 Days DEBBI CAIN DO [Staff Physician] - 7 Days Prescriptions: Amoxicillin/K Clav Tab [Augmentin 875MG TAB] 1 each PO Q12HR 7 Days #14 tablet Sulfamethoxazole/Trimethoprim [Bactrim DS TAB] 1 each PO Q12HR 7 Days #14 tablet Sodium Hypochlorite [Dakin's Full Strength] 15 applic IR DAILY 7 Days #1 bottle oxyCODONE /ACETAMINOPHEN [Percocet 5/325 mg] 1 tab PO Q6HR PRN 3 Days #12 tablet PRN Reason: Pain, Moderate (4-6) <DEBBI CAIN - Last Filed: 03/11/21 11:25> Providers - Providers Date of Admission: 03/08/21 12:21 Attending physician: YISEL CRAIG MD 03/08/21 11:47 Consult to Physician [CONS] Stat Comment: Consulting Provider: DEBBI CAIN Physician Instructions: Reason For Exam: gluteal vs perirectal abscess 03/10/21 09:13 Consult to Case Management [CONS] Routine Services Needed at Discharge: Home Health Services Notified:: n/a Additional Physician Instructions: please provide pt with information to apply for insurance 03/10/21 14:21 Consult to Physician [CONS] Routine Comment: Consulting Provider: LETY DOWELL Physician Instructions: Reason For Exam: outpatient abx recommendations Primary care physician: COIL WINDER REPAIR Exam - Constitutional Vitals: Temp Pulse Resp BP Pulse Ox 97.7 F 58 L 17 115/68 99 03/11/21 05:08 03/11/21 05:08 03/11/21 06:06 03/11/21 05:08 03/11/21 05:08 Plan Activity: no restrictions Diet: diabetic Wound: other (Cleanse wound in shower with gentle soap and water. Pack with one piece of dakins moistened kerlix. Make sure some gauze is visible on the outside of the wound. Cover with dry gauze. Peformed dressing and packing changes daily. )
[2021-03-11 14:08] VITALS: BP 113/72
== END 2021-03-11 15:01 | disposition home health service (06) | DRG 854 ==
LOC: ED 08:56 → 4A 12:21 → 3A 17:59
PROVIDERS: ADMIT Internal Medicine; ATTEND Student in an Organized Health Care Education/Training Program
PROC: 0JB90ZZ Excision of Buttock Subcutaneous Tissue and Fascia, Open Approach (ICD-10-PCS; principal; 2021-03-08)
DX: A41.9 Sepsis, unspecified organism (principal); L03.317 Cellulitis of buttock; L02.31 Cutaneous abscess of buttock; K61.1 Rectal abscess; Z82.49 Family history of ischemic heart disease and other diseases of the circulatory system; E66.9 Obesity, unspecified; Z68.35 Body mass index [BMI] 35.0-35.9, adult; Z83.3 Family history of diabetes mellitus; R73.03 Prediabetes
CPT/HCPCS: 36415; 74177; 80048; 80053; 80202; 81001; 82140; 82962; 83036; 85025; 85027; 85610; 85730; 86140; 86850; 86900; 86901; 87040; 87075; 87086; 87116; G0378; Q0162; J0330; J1100; J1170; J1644; J1885; J2370; J2405; J2543; J2704; J3370; J7030; J7040; P9045; P9047; Q9967